=== PATIENT | male | born 1965 | race Caucasian/White ===

== ENCOUNTER 2017-12-06 06:47 | Day surgery (SDC) | payer MEDICARE ==
[~2017-12-06] VITALS: Ht 170.2 cm; Wt 109.3 kg
[~2017-12-06 06:47] MED LIST: AMIT75 PO; AMLO5 PO; Actos15 MG PO; Amitriptyline100 MG PO; BACPOLTO30 TP; BASAGLAR K100 UNIT/1 SC; CARV3.125 PO; CEPH500 PO; DULO60 PO; Glucophage1000 MG PO; HYDCHL25 PO; LISI20 PO; METF500C PO; METO100ER PO; METO50 PO; TRAM50 PO
== END 2017-12-06 23:08 | disposition home or self-care (01) ==
LOC: ORSCMMR 06:47 → ORD 08:00 → ORSCMMR 08:00
PROVIDERS: Internal Medicine Gastroenterology
PROC: 0DB68ZX Excision of Stomach, Via Natural or Artificial Opening Endoscopic, Diagnostic (ICD-10-PCS; principal; 2017-12-06 08:00)
PROC: 0D758ZZ Dilation of Esophagus, Via Natural or Artificial Opening Endoscopic (ICD-10-PCS; principal; 2017-12-06 08:00)
PROC: 0DB58ZX Excision of Esophagus, Via Natural or Artificial Opening Endoscopic, Diagnostic (ICD-10-PCS; principal; 2017-12-06 08:00)
PROC: 0DB48ZX Excision of Esophagogastric Junction, Via Natural or Artificial Opening Endoscopic, Diagnostic (ICD-10-PCS; principal; 2017-12-06 08:00)
DX: R13.14 Dysphagia, pharyngoesophageal phase (principal); B37.81 Candidal esophagitis; K29.70 Gastritis, unspecified, without bleeding; K44.9 Diaphragmatic hernia without obstruction or gangrene; E11.9 Type 2 diabetes mellitus without complications; I10 Essential (primary) hypertension; F32.9 Major depressive disorder, single episode, unspecified; F41.9 Anxiety disorder, unspecified; Z80.0 Family history of malignant neoplasm of digestive organs; Z79.4 Long term (current) use of insulin; Z79.899 Other long term (current) drug therapy
CPT/HCPCS: 82947; 88305; 88312; 88342; C1726; J7030

== ENCOUNTER 2018-11-28 16:24 | Emergency (ER) | payer MEDICARE, BC ==
[~2018-11-28] VITALS: Ht 170.2 cm; Wt 113.4 kg
[~2018-11-28 16:24] MED LIST changes: +METO100 PO; -METO100ER PO
[2018-11-28 17:37] LABS: BASOPHILS ABSOLUTE AUTO 0.07 K/mm3 (0.00-0.23); BASOPHILS PERCENT AUTO 1 % (0-2); EOSINOPHILS ABSOLUTE AUTO 0.15 K/mm3 (0.00-0.68); EOSINOPHILS PERCENT AUTO 2 % (0-6); Hematocrit 36.3 % (37.0-53.0); IMMATURE GRAN ABSOLUTE AUTO 0.03 K/mm3 (0.00-0.10); IMMATURE GRAN PERCENT AUTO 0 % (0-1); LYMPHOCYTES PERCENT AUTO 30 % (21-46); MONOCYTES PERCENT AUTO 11 % (4-13); Mean Corpuscular HGB 27.6 pg (26.0-34.0); Mean Corpuscular HGB Conc 33.1 g/dL (31.5-36.5); Mean Corpuscular Volume 83 fL (80-100); Mean Platelet Volume 8.4 fL (9.1-12.4); NEUTROPHILS ABSOLUTE AUTO 4.58 K/mm3 (1.96-9.15); NEUTROPHILS PERCENT AUTO 56 % (41-73); Platelet Count 380 K/mm3 (150-400); RDW Coefficient Variation 12.3 % (11.7-14.2); RDW Standard Deviation 37.3 fL (35.1-46.3); Red Blood Cell Count 4.35 M/mm3 (4.30-5.90); White Blood Cell Count 8.23 K/mm3 (4.00-11.30)
[2018-11-28 17:55] LABS: Alanine Aminotransfer (ALT/SGP 33 U/L (12-78); Albumin, Blood 3.9 g/dL (3.4-5.0); Alk Phos 93 U/L (50-136); Anion Gap 6 mmol/L (6-16); Aspartate Aminotrans (AST/SGOT 19 U/L (12-37); Bilirubin, Total 0.2 mg/dL (0.1-1.0); Blood Urea Nitrogen 26 mg/dL (8-24); Bun/Creatinine Ratio 23.2 (12.0-20.0); CO2, Blood 27 mmol/L (21-32); Chloride, Blood 105 mmol/L (98-108); Creatinine, Blood 1.12 mg/dL (0.60-1.20); Ethanol (Alcohol), Blood, Med <3 mg/dL; Globulin, Blood 4.1 g/dL (2.2-4.0); Glomerular Filtration Rate >60 (60-); Glucose, Blood 144 mg/dL (70-99); Potassium, Blood 4.1 mmol/L (3.5-5.5); Sodium, Blood 138 mmol/L (136-145)
[2018-11-28 18:05] LABS: International Normalized Ratio 0.97; Prothrombin Time Results 10.3 Sec (9.7-11.5)
[2018-11-28 19:41] LABS: U Amphetamine Screen Not Detected; U Barbituate Screen Not Detected; U Benzodiazapine Screen Not Detected; U Buprenorphine Screen Not Detected; U Cannabinoids Screen Not Detected; U Cocaine Screen Not Detected; U Methadone Screen Not Detected; U Methamphetamine Screen Not Detected; U Opiates Screen Not Detected; U Oxycodone Screen Not Detected; U Phencyclidine Screen Not Detected; U Propoxyphene Screen Not Detected
[2018-11-28] MEDS ORDERED: Aspirin EC81 MG PO (19:51)
[2018-11-28] MEDS ORDERED: CLOP75 PO (19:51)
== END 2018-11-28 20:26 | disposition home or self-care (01) ==
LOC: ER 16:24
PROVIDERS: Physician Assistant
DX: I63.231 Cerebral infarction due to unspecified occlusion or stenosis of right carotid arteries (principal); Z88.8 Allergy status to other drugs, medicaments and biological substances; Z79.899 Other long term (current) drug therapy; Z79.84 Long term (current) use of oral hypoglycemic drugs; I10 Essential (primary) hypertension; F32.9 Major depressive disorder, single episode, unspecified; F41.9 Anxiety disorder, unspecified
CPT/HCPCS: 36415; 70450; 70496; 70498; 80053; 82947; 85025; 85610; 93005; 93010; 99285-25; G0480; Q9967

== ENCOUNTER 2018-12-09 16:56 | Observation (INO) | payer MEDICARE ==
[~2018-12-09] VITALS: Ht 170.2 cm; Wt 111.4 kg
[~2018-12-09 16:56] MED LIST changes: +Aspirin EC81 MG PO; +CLOP75 PO
[2018-12-09 17:24] LABS: BASOPHILS ABSOLUTE AUTO 0.07 K/mm3 (0.00-0.23); BASOPHILS PERCENT AUTO 1 % (0-2); EOSINOPHILS ABSOLUTE AUTO 0.14 K/mm3 (0.00-0.68); EOSINOPHILS PERCENT AUTO 2 % (0-6); Hematocrit 36.2 % (37.0-53.0); Hemoglobin 12.2 g/dL (13.5-17.5); IMMATURE GRAN ABSOLUTE AUTO 0.03 K/mm3 (0.00-0.10); IMMATURE GRAN PERCENT AUTO 0 % (0-1); LYMPHOCYTES ABSOLUTE AUTO 1.62 K/mm3 (0.84-5.20); LYMPHOCYTES PERCENT AUTO 21 % (21-46); MONOCYTES PERCENT AUTO 10 % (4-13); Mean Corpuscular HGB 27.4 pg (26.0-34.0); Mean Corpuscular HGB Conc 33.7 g/dL (31.5-36.5); Mean Corpuscular Volume 81 fL (80-100); Mean Platelet Volume 8.4 fL (9.1-12.4); NEUTROPHILS ABSOLUTE AUTO 5.05 K/mm3 (1.96-9.15); NEUTROPHILS PERCENT AUTO 66 % (41-73); Platelet Count 360 K/mm3 (150-400); RDW Coefficient Variation 12.3 % (11.7-14.2); RDW Standard Deviation 36.7 fL (35.1-46.3); Red Blood Cell Count 4.45 M/mm3 (4.30-5.90); White Blood Cell Count 7.71 K/mm3 (4.00-11.30)
[2018-12-09 17:39] LABS: Alanine Aminotransfer (ALT/SGP 32 U/L (12-78); Albumin, Blood 3.8 g/dL (3.4-5.0); Alk Phos 93 U/L (50-136); Anion Gap 9 mmol/L (6-16); Aspartate Aminotrans (AST/SGOT 16 U/L (12-37); Bilirubin, Total 0.2 mg/dL (0.1-1.0); Blood Urea Nitrogen 16 mg/dL (8-24); Bun/Creatinine Ratio 20.9 (12.0-20.0); CO2, Blood 25 mmol/L (21-32); Calcium, Blood 8.6 mg/dL (8.5-10.1); Chloride, Blood 103 mmol/L (98-108); Creatinine, Blood 0.77 mg/dL (0.60-1.20); Globulin, Blood 3.8 g/dL (2.2-4.0); Glomerular Filtration Rate >60 (60-); Glucose, Blood 142 mg/dL (70-99); Potassium, Blood 3.9 mmol/L (3.5-5.5); Sodium, Blood 137 mmol/L (136-145); Total Protein, Blood 7.6 g/dL (6.4-8.2); Troponin I <0.015 ng/mL (0.000-0.040)
--- NOTE | 2018-12-09 21:15 | NUR ---
VERIFIED TELE WITH SURJIT PRESSLEYU SOLUTION LEAD. SINUS RHYTHM AT 87.
--- NOTE | 2018-12-10 03:55 | NUR ---
Shift summary. Pt has had a good night with no c/o discomfort during the night. Neuro checks WNL. Slept well. No neuro deficits noted. MRI paperwork filled out and faxed to radiology for MRI this am.
[2018-12-10 05:11] LABS: BASOPHILS ABSOLUTE AUTO 0.06 K/mm3 (0.00-0.23); BASOPHILS PERCENT AUTO 1 % (0-2); EOSINOPHILS ABSOLUTE AUTO 0.17 K/mm3 (0.00-0.68); EOSINOPHILS PERCENT AUTO 2 % (0-6); Hemoglobin 11.4 g/dL (13.5-17.5); IMMATURE GRAN ABSOLUTE AUTO 0.02 K/mm3 (0.00-0.10); IMMATURE GRAN PERCENT AUTO 0 % (0-1); LYMPHOCYTES ABSOLUTE AUTO 2.05 K/mm3 (0.84-5.20); LYMPHOCYTES PERCENT AUTO 28 % (21-46); MONOCYTES ABSOLUTE AUTO 0.84 K/mm3 (0.16-1.47); MONOCYTES PERCENT AUTO 11 % (4-13); Mean Corpuscular HGB 26.5 pg (26.0-34.0); Mean Corpuscular HGB Conc 32.6 g/dL (31.5-36.5); Mean Corpuscular Volume 81 fL (80-100); Mean Platelet Volume 8.5 fL (9.1-12.4); NEUTROPHILS ABSOLUTE AUTO 4.31 K/mm3 (1.96-9.15); NEUTROPHILS PERCENT AUTO 58 % (41-73); Platelet Count 319 K/mm3 (150-400); RDW Coefficient Variation 12.6 % (11.7-14.2); RDW Standard Deviation 37.1 fL (35.1-46.3); White Blood Cell Count 7.45 K/mm3 (4.00-11.30)
[2018-12-10 05:53] LABS: Anion Gap 8 mmol/L (6-16); Blood Urea Nitrogen 17 mg/dL (8-24); Bun/Creatinine Ratio 21.1 (12.0-20.0); CHOL/HDL RATIO 8.8; CO2, Blood 26 mmol/L (21-32); Calcium, Blood 8.6 mg/dL (8.5-10.1); Chloride, Blood 104 mmol/L (98-108); Cholesterol 194 mg/dL (50-200); Glomerular Filtration Rate >60 (60-); Glucose, Blood 144 mg/dL (70-99); HDL Cholesterol 22 mg/dL (>39); LDL/HDL RATIO Unable to Calculate; Low Density Lipoprotein Chol Unable to Calculate mg/dL (0-110); Potassium, Blood 3.9 mmol/L (3.5-5.5); Sodium, Blood 138 mmol/L (136-145); Triglycerides 800 mg/dL (30-160); Very Low Density Lipoprot Chol Unable to Calculate mg/dL (6-32)
[2018-12-10 06:04] LABS: LDL Direct Measurement 81 mg/dL (0-130)
--- NOTE | 2018-12-10 15:17 | NUR ---
SUMMARY/DISCHARGE PT DISCHARGED TO HOME, FRIEND HERE TO TRANSPORT HOME, PT ALREADY HAS AN APPOINTMENT SET UP FOR THIS MONDAY, PT VERBALIZED UNDERSTANDING OF DISCHARGE INSTRUCTIONS REGARDING MEDICATIONS AND FOLLOW UP THERAPIES, PT TAKEN OUT SAFELY VIA WHEELCHAIR
== END 2018-12-10 15:12 | disposition home or self-care (01) ==
LOC: ER 16:56 → MEDS 16:57 → ENPENDDIS 12-10 12:49 → MEDS 12-10 15:12
PROVIDERS: Emergency Medicine; ADMIT Internal Medicine
DX: I63.9 Cerebral infarction, unspecified (principal); I10 Essential (primary) hypertension; E11.9 Type 2 diabetes mellitus without complications; F41.9 Anxiety disorder, unspecified; F32.9 Major depressive disorder, single episode, unspecified; G47.00 Insomnia, unspecified; E78.5 Hyperlipidemia, unspecified; K21.9 Gastro-esophageal reflux disease without esophagitis; E66.9 Obesity, unspecified; Z79.899 Other long term (current) drug therapy; Z79.82 Long term (current) use of aspirin; Z79.01 Long term (current) use of anticoagulants; Z79.4 Long term (current) use of insulin; Z86.73 Personal history of transient ischemic attack (TIA), and cerebral infarction without residual deficits; Z88.8 Allergy status to other drugs, medicaments and biological substances
CPT/HCPCS: 36415; 70450; 70551; 80048; 80053; 80061; 82947; 83721; 84484; 85025; 93005; 93010; 93306; 97112; 97161; 97165; 97530; 99285-25; G0378

== ENCOUNTER 2018-12-11 01:13 | Inpatient (IN) | payer MEDICARE ==
[~2018-12-11] VITALS: Ht 177.8 cm; Wt 110.2 kg
[2018-12-11 01:43] LABS: BASOPHILS ABSOLUTE AUTO 0.05 K/mm3 (0.00-0.23); BASOPHILS PERCENT AUTO 1 % (0-2); EOSINOPHILS ABSOLUTE AUTO 0.21 K/mm3 (0.00-0.68); EOSINOPHILS PERCENT AUTO 3 % (0-6); Hematocrit 35.3 % (37.0-53.0); IMMATURE GRAN ABSOLUTE AUTO 0.02 K/mm3 (0.00-0.10); IMMATURE GRAN PERCENT AUTO 0 % (0-1); LYMPHOCYTES ABSOLUTE AUTO 1.72 K/mm3 (0.84-5.20); LYMPHOCYTES PERCENT AUTO 23 % (21-46); MONOCYTES ABSOLUTE AUTO 0.81 K/mm3 (0.16-1.47); MONOCYTES PERCENT AUTO 11 % (4-13); Mean Corpuscular HGB 28.2 pg (26.0-34.0); Mean Corpuscular Volume 83 fL (80-100); Mean Platelet Volume 8.6 fL (9.1-12.4); NEUTROPHILS ABSOLUTE AUTO 4.79 K/mm3 (1.96-9.15); NEUTROPHILS PERCENT AUTO 63 % (41-73); Platelet Count 331 K/mm3 (150-400); RDW Coefficient Variation 12.7 % (11.7-14.2); RDW Standard Deviation 38.1 fL (35.1-46.3); Red Blood Cell Count 4.26 M/mm3 (4.30-5.90)
[2018-12-11 01:58] LABS: International Normalized Ratio 0.91; Prothrombin Time Results 9.7 Sec (9.7-11.5)
[2018-12-11 02:16] LABS: Alanine Aminotransfer (ALT/SGP 44 U/L (12-78); Albumin, Blood 3.5 g/dL (3.4-5.0); Albumin/Globulin Ratio 0.9 (0.8-1.8); Alk Phos 89 U/L (50-136); Anion Gap 10 mmol/L (6-16); Aspartate Aminotrans (AST/SGOT 22 U/L (12-37); Bilirubin, Total 0.2 mg/dL (0.1-1.0); Blood Urea Nitrogen 23 mg/dL (8-24); Bun/Creatinine Ratio 26.6 (12.0-20.0); CO2, Blood 25 mmol/L (21-32); Calcium, Blood 8.5 mg/dL (8.5-10.1); Chloride, Blood 103 mmol/L (98-108); Creatinine, Blood 0.87 mg/dL (0.60-1.20); Globulin, Blood 3.8 g/dL (2.2-4.0); Glomerular Filtration Rate >60 (60-); Glucose, Blood 243 mg/dL (70-99); Potassium, Blood 4.1 mmol/L (3.5-5.5); Sodium, Blood 138 mmol/L (136-145); Total Protein, Blood 7.3 g/dL (6.4-8.2)
--- NOTE | 2018-12-11 17:34 | NUR ---
HE HAS 2 SALINE LOCKS. BOTH ARE 20G. RH FROM ER AND RFA FROM EMS.
--- NOTE | 2018-12-11 18:03 | NUR ---
HE WAS ADMITTED JUST BEFORE LUNCH FROM THE ER TO RM 357. HIS FAMILY IS WITH HIM. THEY HAVE LOTS OF QUESTIONS. HIS L SIDE IS FLACCID. HE IS A&O X4. HIS LIZZETTE. NO H/A ON ARRIVAL BUT DEVELOPED A MILD ONE LATER. TYLENOL WAS GIVEN BUT WITHOUT MUCH EFFECT. HE ALSO EXPERIENCED TRANSIENT N/T AROUND HIS MOUTH THIS AFTERNOON. VSS. NEURO CHECK THIS EVENING UNCHANGED. I THOUGHT HIS PUPIL SIZE FIRST TO BE 2 BUT LATER BOTH TO BE 3. HE HAS A GOOD SENSE OF HUMOR. HE IS WORRIED OF COURSE ABOUT THIS BEING HIS 3RD? STROKE SINCE November. SPEECH IS JUST SLIGHTLY SLURRED. HE HAS REPEATED HIMSELF. HIS FAMILY SAYS HE IS NOT 100% ORIENTED. PT/OT EVALUATED HIM. HE WAS UNABLE TO DANGLE SAFELY. WE LATER USED A LIFT TO PUT HIM ON A BSC. HE PASSED A LOT OF GAS BUT NO BM. HE HAS VOIDED PER URINAL BUT NEEDS ASSIST. TELE NSR.
--- NOTE | 2018-12-12 05:06 | NUR ---
SHIFT SUMMARY PT SLEPT OFF AND ON DURING THE SHIFT. BEDDING NEEDING TO BE CHANGED X1 THIS SHIFT DUE TO PT MISSING URINAL. PT ENCOURAGED TO ASK FOR HELP. PT VERY SWEATY DURING THE NIGHT, STATES THIS IS NORMAL FOR HIM. PT ALSO ABLE TO WIGGLE TOES ON LEFT FOOT AND WAS ABLE TO LIFT LEFT ARM FROM BED TO ACROSS ABDOMEN. THIS IS ALL NEW SINCE BEGINNING OF SHIFT. LEFT SIDE WAS COMPLETELY FLACCID AT SHIFT CHANGE. PT OFFERS NO C/O'S OTHER THAN HAVING A HEADACHE EARLY ON IN SHIFT AND RECEIVING TYLENOL. WILL CONTINUE TO MONITOR.
--- NOTE | 2018-12-12 16:00 | NUR ---
Patient is jovial and kind. Patient's son and daughter in law are present in the room. Patient tells me the horror of the strokes and the struggle it has been to wrap his mind around it all. We talk about his family, his future plans and his jb. Patient plans to go the a rehab unit in [place] because his family is in that area. Patient seemed to receive encouragement and emotional support well. I provided prayer which caused patient to be quite emotional for a moment then to break the ice he went immediately back to joking around. Everyone in the room is well aware that it was a deeply impactful moment. Patient expresses gratitude for the visit. I will continue to be available to patient and family.
--- NOTE | 2018-12-12 19:23 | NUR ---
PATIENT IS ALERT AND ORIENTED AND COOPERATIVE WITH CARE. NO COMPLAINTS OF PAIN TODAY. PATIENT GOT OUT OF BED AFTER BREAKFAST BY LIFT AND SAT IN THE RECLINER FOR MOST OF THE DAY. FAMILY WAS AT THE BEDSIDE. PATIENT USED THE BSC WITH COMPLETE ASSISTANCE OF LIFT AND 2PA. HE HAD A LARGE BM AND VOIDED MULTIPLE TIMES. THE PATIENT RECEIVED A COMPLETE BED BATH. NO ACUTE CHANGES THIS SHIFT.
--- NOTE | 2018-12-13 04:28 | NUR ---
SHIFT SUMMARY A/O, ABLE TO MAKE NEEDS KNOWN. COOPERATIVE WITH CARE. CALLS AND ANSWERS QUESTIONS APPROPRIATELY. NO C/O PAIN/DISCOMFORT. ABLE TO FEEL ME TOUCHING HIS LEFT HAND, BUT UNABLE TO SQUEEZE MY FINGERS. L FOOT, HOWEVER HAS FEELING AND IS ABLE TO MOVE SLIGHTLY, BUT STILL WEAK. REQUIRES ASSISTANCE WITH USING THE URINAL. NO ACUTE CHANGES OVERNIGHT. VSS/AFEBRILE. WCTM. BED IN LOWEST POSITION. CALL LIGHT AND BELONGINGS WITHIN REACH. REPORT TO ONCOMING RN.
--- NOTE | 2018-12-13 11:05 | NUR ---
CALLED TO ROOM, PATIENT LYING ON STOMACH ON FLOOR. A&O. PATIENT DENIES HITTING HEAD. STATES HE WAS SITTING ON BSC, ATTEMPTED TO ADJUST HIMSELF ON COMMODE AND 'JUST SLOWLY SLID DOWN TO THE FLOOR.' L KNEE WITH APPROX 2.5 CM ABRASION, SKIN THICKNESS. NO OTHER INJURIES FOUND AT THIS TIME. PT IN ROOM, ASSISTED WITH LASHA LIFT TO BED. VSS. L KNEE WOUND CLEANSED AND BAND AID APPLIED. CONT TO MONITOR.
--- NOTE | 2018-12-13 11:32 | NUR ---
Pt FELL ON THE FLOOR HE WAS ON THE COMMODE, SAID HE FELT PEE RUNNING DOWN HIS LEG AND WHEN TO WIPE IT AND FELL FACE DOWN. I STEPPED OUT TO ANSWER ANOTHER Pt CALL LIGHT.
--- NOTE | 2018-12-13 11:50 | NUR ---
PATIENT SPEAKING WITH FAMILY RE: ON FLOOR. DENIES PAIN AT THIS TIME.
--- NOTE | 2018-12-13 14:51 | NUR ---
Patient is sitting on a chair and alert. Patient immediately informs me that he did a "face plant" while sitting on the portable "potty chair." We talk about what happened and what his injuries are. Patient states that the nurse already took care of him and "did a accident report." I then talk with patient about ways of dealing with the longevity of rehabilitation. Patient tells me many of the things that he has learned through the years and then begins to tear up and says that he talks a good game but he is scared. We talk about allthe tools in his belt (emotionally, experiencially and mentally). We talk about the support of his family and friends and the help his jb gives him. I also provide prayer which again he gets emotional. Patient responds well and thanks me for the encouragement.
--- NOTE | 2018-12-13 17:42 | NUR ---
SHIFT SUMMARY PATIENT WITH NO ADVERSE EFFECTS FROM PRESUMED FALL TODAY. BAND AID TO L KNEE D&I, NO REDNESS OR SWELLING NOTED. PATIENT ADMIN APAP FOR C/O BILAT LEG/THIGH SORENESS. TAKING PO. VOIDING. PATIENT HAS BEEN TEARFUL OCCASIONALLY T/O SHIFT. DECLINED TO SPEAK WITH THIS RN RE: CONDITION. HE DID SPEAK WITH LAN IN SPIRITUAL CARE AT LENGTH TODAY. CONT TO MONITOR.
--- NOTE | 2018-12-13 18:47 | NUR ---
LATE NOTE FOR 1200: ATTEMPTED TO INFORM DR PINK OF PRESUMED FALL. HE STATED 'I'M REALLY BUSY RIGHT NOW.' PATIENT LATER TOLD ME THAT HE DISCUSSED IT WITH MD.
--- NOTE | 2018-12-14 04:46 | NUR ---
SHIFT SUMMARY A/O, ABLE TO MAKE NEEDS KNOWN. COOPERATIVE WITH CARE. ANSWERS QUESTIONS APPRORIATELY, BUT DOES NOT USE CALL LIGHT. WILL CALL OUT, TAP ON OBJECTS OR PULL OFF TELE TO GET ATTENTION (STATES KNOWS THAT STAFF WILL RESPOND). TELE LEADS REPLACED MULTIPLE TIMES PATIENT CONTINUES TO RIP THEM OFF OR TAKING OFF THE STICKERS. PATIENT HAS REMAINED IN NSR PER PCU PLANE CAPTAIN THROUGHOUT SHIFT. USING URINAL INDEPENDENTLY, IMPORVED. NO OTHER ACUTE CHANGES OVERNIGHT. VSS/AFEBRILE. DID APPEAR TO REST MORE THIS SHIFT THAN PREVIOUS. BED IN LOWEST POSITION. CALL LIGHT AND BELONGINGS WITHIN REACH. WCTM. REPORT TO ONCOMING RN.
--- NOTE | 2018-12-14 11:59 | NUR ---
Patient is states that he is emotional today and that he is frustrated and the slowness of increase on the side of his body effected by the stroke. Patient seems to elevate in his mood as we talk about his coping skills and resources. As I pray for patient he becomes very tearful. Patient says that the prayer is very encouraging. We begin talking about placement and patient's doctor comes in so I step out. I continue to be available to patient and family.
--- NOTE | 2018-12-14 18:40 | NUR ---
PATIENT WORKED WITH PT/OT TODAY. LIFT USED TO TX TO CHAIR AND BSC. PATIENT UNABLE TO VOID AND STRAIGHT CATH DONE X1 THIS SHIFT. PATIENT REPORTS L SHOULDER PAIN, TYLENOL GIVEN X2 TO TREAT. PATIENT IS A/O AND COOPERTIVE WITH CARE. NSR ON TELE. FAMILY AT BEDSIDE FOR MOST OF THE SHIFT. VSS. ACHS BLOOD SUGARS, COVERAGE NEEDED X1 THIS SHIFT. PATIENT REFUSING TO TAKES MEDS WHOLE IN APPLESAUCE. SWALLOWS USING WATER WITHOUT DIFFICULTY. FALL PRECAUTIONS IN PLACE PER UNIT PROTOCOL.
--- NOTE | 2018-12-15 07:50 | NUR ---
NO CHANGES TO REPORT THIS SHIFT. PATIENT OOB TO BSC TO VOID AND BM, THEN BTB.
--- NOTE | 2018-12-15 13:14 | NUR ---
Initial Visit: Palliative Care Consult for Advanced Care Planning. Pt is A&O and reports 6/10 pain in his left shoulder. Pt received new medication for pain at beginning of visit. Pt also reports severe anxiety due to not knowing what kind of recovery to expect, difficulty with urine and bowel movements, and having younger staff members care for him. He states "I'm the one that is usually caring for people". Educated Pt on distraction techniques to help manage anxiety. Engaged in therapeutic discussion regarding advanced care planning. Listened as Pt reports his history of caring for other people. Listened as Pt speaks highly or his 2 sons and the success they have in life. Validated Pt's pride and the importance of knowing he did a great job raising his children. Pt reports living with his girlfriend but she has asked him to move out. Pt reports plan is to move in with his ex or ex mother in law both have adult foster homes he can move into. Suggested to have continued conversations with the hospitalist regarding expected recovery and to right down questions on paper to help remind him to ask the questions. Pt tearful at times during visit and this RN offered emotional support. Pt reports interest in applying for medicaid in order for the adult foster home staff to be pain for caring for him. Instructed Pt this RN will place a social service consult. Pt reports no other concerns. Pt requests for palliative care to visit with him again on Monday. Spoke with bedside nurse Sarah and discussed case. Palliative Care will remain available.
--- NOTE | 2018-12-16 08:11 | NUR ---
NOTHING NEW TO REPORT
--- NOTE | 2018-12-16 15:54 | NUR ---
Pastoral care visitation conducted. Pt was utilizing his electric shaver as he was lying in the chair near the hospital bed. Pt appeared slightly distraught as evidenced by facial cues and a downcast demeanor. Pt shared about his recent challenges both physically and emotionally. He divulged congruently and confided his difficulties. Pastoral encouragement, normalization of felt expression, and validating feedback provided. I offered prayer to which the pt readily accepted and extended appreciation.
--- NOTE | 2018-12-17 05:57 | NUR ---
PATIENT CONTINUES TO BE UNABLE TO VOID THIS SHIFT. SCAN AT MIDNIGHT SHOWED 622ML IN THE BLADDER. CATHED PATIENT AN GOT A RETURN OF 700 ML TEA-COLORED FLOR URINE. IN THE TUBE IT APEARS CLEAR YELLOW. 6AM SCAN SHOWED 0ML.
--- NOTE | 2018-12-17 11:59 | NUR ---
Patient is sitting on a chair and states that he is having a down day. He says that the longer is left with his thoughts the deeper he goes down. He says that he sits and tries to move his arm and leg and the more it does move the frustrated he gets. I talk with patient about focusing on what he does have and what does work. I speak about becoming a great comeback story and that he has what it takes. We talk about his limitations and how that impacts his view of self and his future. We discuss life with a new normal and the power and impact he can have in that new world. I provide companionship and prayer. Patient is very emotional during the prayer but thanks me for and states that he needed it. I wish patient the best as he says that he will most likely be headed out today.
--- NOTE | 2018-12-17 19:39 | NUR ---
SHIFT SUMAMRY: NO ACUTE CHANGES TO REPORT THIS SHIFT. PT A&O; CALM AND COOPERATIVE WITH CARE. MEDICATED FOR L SHOULDER PAIN PER EMAR. BLADDER SCAN Q6P R/T URINARY RETENTION; STRAIGHT CATH THIS SHIFT-450 ML DRAINED. [facility] [place] [facility] [place]ACILITY R/T STROKE ON Nov. REPORT GIVEN TO ONCOMING RN.
--- NOTE | 2018-12-18 07:15 | NUR ---
SHIFT SUMMARY PT C/O PAIN IN L SHOULDER AND MEDICATED PER EMAR. HE WAS ABLE TO SLEEP AFTER THAT. NOT ABLE TO HAVE BM ON BSC. BLADDER SCAN @ 0400 SHOWED 530 STRAIGHT CATH OUTPUT WAS 425. STILL NOT ABLE TO MOVE L ARM OR L LEG. HE WAS ABLE TO SLEEP T/O NIGHT. CALL LIGHT IN REACH.
--- NOTE | 2018-12-18 11:13 | NUR ---
Patient is sleeping but easily awakens to the sound of his name. Patient says that he finney not why there is such a delay in getting transferred to [place] for rehabilitation. Patient is not very talkative today. I talk with patient about his journey moving forward in his life. Patient starts falling asleep while he is talking. I provide prayer for patient and allow patient to get back to resting.
[2018-12-18] MEDS ORDERED: LISI20 PO (15:15)
[2018-12-18] MEDS ORDERED: METO50ER PO (15:16)
[2018-12-18] MEDS ORDERED: ACET325 PO (15:17)
[2018-12-18] MEDS ORDERED: GABA300 (15:18)
[2018-12-18] MEDS ORDERED: ESCI10 PO (15:18)
[2018-12-18] MEDS ORDERED: TAMS.4ER (15:19)
[2018-12-18] MEDS ORDERED: TRAM50 PO (15:20)
--- NOTE | 2018-12-18 17:28 | NUR ---
PATIENT DISCHARGE: [facility] [place] [facility]. MEDICATION RECONCILIATION COMPLETED; DISCHARGE PACKET FAXED TO [facility]. PATIENT DEPARTED MEDICAL FLOOR VIA [employer] [facility] AT 1710. PATIENT DEPARTED [facility].
== END 2018-12-18 17:17 | DRG 65 ==
LOC: ER 01:13 → ERHOLD 01:14 → MEDS 11:30 → ERHOLD 12-14 17:49 → MEDS 12-14 23:15
PROVIDERS: Emergency Medicine; ADMIT Hospitalist
DX: I63.9 Cerebral infarction, unspecified (principal); G81.94 Hemiplegia, unspecified affecting left nondominant side; I65.21 Occlusion and stenosis of right carotid artery; E11.9 Type 2 diabetes mellitus without complications; Z79.4 Long term (current) use of insulin; E66.9 Obesity, unspecified; F32.9 Major depressive disorder, single episode, unspecified; F41.9 Anxiety disorder, unspecified; N40.1 Benign prostatic hyperplasia with lower urinary tract symptoms; R33.8 Other retention of urine; M25.512 Pain in left shoulder; E78.5 Hyperlipidemia, unspecified; Z86.73 Personal history of transient ischemic attack (TIA), and cerebral infarction without residual deficits; Z88.8 Allergy status to other drugs, medicaments and biological substances; Z79.02 Long term (current) use of antithrombotics/antiplatelets; Z79.82 Long term (current) use of aspirin; Z79.899 Other long term (current) drug therapy
CPT/HCPCS: 70450; 80053; 82947; 85025; 85610; 92507; 92523; 92526; 92610; 93005; 93010; 96372; 97110; 97112; 97162; 97166; 97530; 97535; 99285-25; A9270; J1650